=== PATIENT | male | born 1980 | race Caucasian/White ===

== ENCOUNTER 2020-06-06 10:17 | Emergency (ER) | payer SELFPAY ==
[2020-06-06 10:30] VITALS: BP 150/97; PULSE 82; RESP 20; TEMP 37; O2SAT 98
--- NOTE | 2020-06-06 11:07 | ED.EYEPROB ---
HPI - Eye Problem General Chief complaint: Eye Problems Stated complaint: Eye problems Source: patient Mode of arrival: ambulatory Limitations: no limitations History of Present Illness HPI Narrative: Patient is a 39-year-old male who presents with a stye to his left eye. He reports irritation x2 weeks. Reports using warm compresses without relief. Reports a history of same in the past and has always needed antibiotics to decrease. Patient is from out of town and unable to contact PCP. Related Data Allergies Allergy/AdvReac Type Severity Reaction Status Date / Time No Known Allergies Allergy Verified 06/06/20 10:42 Review of Systems Review of Systems: Narrative: CONSTITUTIONAL: Denies fever, chills, or sweats. EYES: Denies visual changes, reports redness and swelling to upper and lower lid, discharge in a.m.. ENT: Denies rhinorrhea, congestion, sore throat, or otalgia. CARDIOVASCULAR: Denies chest pain, palpitations, or edema. RESPIRATORY: Denies cough or dyspnea. GASTROINTESTINAL: Denies abdominal pain, nausea, vomiting, or diarrhea. GENITOURINARY: Denies dysuria or hematuria. SKIN: Denies rash or itching. MUSCULOSKELETAL: Denies back pain, joint pain, or myalgia. NEUROLOGIC: Denies headache, numbness, dizziness, or weakness. PSYCHIATRIC: Denies anxiety or depression. PMFSH Past Medical History Medical History (Updated 06/06/20 @ 11:15 by HENRI Jones) Hordeolum externum (stye) Surgical History Surgical History (Updated 06/06/20 @ 11:09 by HENRI Jones) No significant past surgical history Family History Family History (Updated 06/06/20 @ 11:09 by HENRI Jones) Other No significant family history Social History Social History (Updated 06/06/20 @ 11:09 by HENRI Jones) Smoking status: Never smoker Alcohol intake: current Substance use: never Living arrangements: alone Exam Narrative: Exam Narrative: GENERAL: Well-appearing, well-nourished, and in no acute distress. HEAD: Normocephalic, atraumatic. EYES: EOMI. erythema and edema to upper lid and lower lid, hordeolum noted to upper and lower lid, sclera injected. ENT: Mucous membranes pink and moist. CHEST: No respiratory distress. HEART: Regular rate and rhythm. EXTREMITIES: Normal range of motion. SKIN: Warm, dry, no rash. NEURO: No focal deficits. Alert and oriented x3. Gait steady. PSYCH: Normal affect. No signs of depression or anxiety. Course Vital Signs Vital signs: Vital Signs Temperature 37.0 C 06/06/20 10:30 Pulse Rate 82 06/06/20 10:30 Respiratory Rate 20 06/06/20 10:30 Blood Pressure 150/97 H 06/06/20 10:30 Pulse Oximetry 98 06/06/20 10:30 Temperature 37.0 C 06/06/20 10:30 Pulse Rate 82 06/06/20 10:30 Respiratory Rate 20 06/06/20 10:30 Blood Pressure 150/97 H 06/06/20 10:30 Pulse Oximetry 98 06/06/20 10:30 MDM - Eye Problem MDM Narrative Medical decision making narrative: Discussed with patient that he has hordeolum on upper and lower lids of the left eye. Patient reports treatment with antibiotics in the past. Discussed with patient that he also appears to have conjunctivitis in left eye as well. Patient is aware of the need to follow-up with ophthalmology when he returns home next week. Patient is stable for discharge home with outpatient follow-up as discussed. Differential Diagnosis Differential diagnosis: Likely corneal abrasion, conjunctivitis, periorbital cellulitis and other (hordeloum) Critical Care Time Critical Care Time Critical Care Time: No Discharge Plan Discharge Clinical Impression: Bacterial conjunctivitis, Hordeolum Patient Disposition: Home, Self-Care Condition: Stable Instructions: Antibiotic Form Prescriptions: New amoxicillin-pot clavulanate 875-125 mg tablet 1 tablet PO Q12H 7 Days Qty: 14 RF: 0 erythromycin 5 mg/gram (0.5 %) ointment 0.5 inch ophthalmic (eye) TID 5 Days Qty: 1 RF:
== END 2020-06-06 11:17 | disposition home or self-care (01) ==
PROVIDERS: Emergency Provider Nurse Practitioner
DX: H00.015 Hordeolum externum left lower eyelid (principal); H00.014 Hordeolum externum left upper eyelid; H10.89 Other conjunctivitis
CPT/HCPCS: 99213; G0463